=== PATIENT | male | born 1985 | race African-American/Black ===

== ENCOUNTER 2020-10-04 10:01 | Emergency (ER) | payer OTHER ==
[2020-10-04 10:22] VITALS: RESP 18; TEMP 99.5
[2020-10-04] MEDS ORDERED: SODIUM CHLORIDE 0.9% 1,000 ML IV STA (10:26)
[2020-10-04] MEDS ORDERED: ONDANSETRON 4 MG/2 ML VIAL IVP STA (10:34)
--- NOTE | 2020-10-04 10:36 | ED ---
General Adult HPI - General Chief complaint: Alcohol Stated complaint: dehydration Time Seen by Provider: 10/04/20 10:26 Source: patient Mode of arrival: ambulatory Limitations: no limitations - History of Present Illness Initial comments: Dictation was produced using [employer] dictation software. please excuse any grammatical, word or spelling errors. Chief Complaint: 35-year-old male with chief complaint of alcohol withdrawals History of Present Illness: 35-year-old male with past medical history of alcohol abuse presents with symptoms of alcohol withdrawal. Patient states he has not had any alcohol in approximately 2 days. He drinks anywhere between 48 shots daily. He has been admitted for alcohol withdrawals in the past. He states he's also been admitted to cigarettes for alcohol detoxification. Patient states her last complaints she's been having some vomiting. He does feel slightly feverish. Denies any respiratory symptoms. No cough shortness of breath. Denies any abdominal pain. No diarrhea. The ROS documented in this emergency department record has been reviewed and confirmed by me. Those systems with pertinent positive or negative responses have been documented in the HPI. All other systems are other negative and/or noncontributory. PHYSICAL EXAM: General Impression: Alert and oriented x3, not in acute distress HEENT: Normocephalic atraumatic, extra-ocular movements intact, pupils equal and reactive to light bilaterally, mucous membranes moist. Cardiovascular: Heart regular rate and rhythm Chest: Able to complete full sentences, no retractions, no tachypnea Abdomen: abdomen soft, non-tender, non-distended, no organomegaly Musculoskeletal: Pulses present and equal in all extremities, no peripheral edema Motor: no focal deficits noted Neurological: CN II-XII grossly intact, no focal motor or sensory deficits noted Skin: Intact with no visualized rashes Psych: Normal affect and mood ED course: 35-year-old male with chief complaint of possible alcohol withdrawal symptoms. Vital signs show low-grade temperature 99.5, rest of vital signs within acceptable limits. Laboratory evaluation obtained. CBC, metabolic panel is unremarkable. Serum alcohol is negative. Patient reevaluated at bedside at 12:10 PM with stable medical condition. Is not showing any signs of severe withdrawals. Patient states he has intention of going to check into a alcoholic detox rehab facility within the next couple days. Patient is agreeable with discharge. He is given prescription for Librium. Told that if his symptoms started worse that he should return to the emergency department or seek immediate medical attention. Patient is agreeable to plan. - Related Data Home Medications Medication Instructions Recorded Confirmed hydrOXYzine pamoate [Vistaril] 50 mg PO TID PRN 10/04/20 10/04/20 Previous Rx's Medication Instructions Recorded chlordiazePOXIDE HCl [Librium] 25 mg PO TID 3 Days #15 capsule 10/04/20 Allergies Allergy/AdvReac Type Severity Reaction Status Date / Time No Known Allergies Allergy Verified 10/04/20 11:04 Review of Systems ROS Statement: Those systems with pertinent positive or pertinent negative responses have been documented in the HPI. ROS Other: All systems not noted in ROS Statement are negative. Past Medical History Additional Past Medical History / Comment(s): alcoholism History of Any Multi-Drug Resistant Organisms: None Reported Past Surgical History: No Surgical Hx Reported Past Psychological History: No Psychological Hx Reported Smoking Status: Never smoker Past Alcohol Use History: Abuse, Daily Past Drug Use History: Marijuana General Exam Limitations: no limitations Course Vital Signs 10/04/20 10:17 Temperature 99.5 F Pulse Rate 88 Respiratory 18 Rate Blood Pressure 142/103 O2 Sat by Pulse 99 Oximetry Medical Decision Making - Lab Data Result diagrams: 10/04/20 10:38 10/04/20 10:38 Lab Results 10/04/20 10/04/20 Range/Units 10:38 10:38 WBC 4.1 (3.8-10.6) k/uL RBC 4.54 (4.30-5.90) m/uL Hgb 13.6 (13.0-17.5) gm/dL Hct 41.3 (39.0-53.0) % MCV 90.9 (80.0-100.0) fL MCH 30.0 (25.0-35.0) pg MCHC 33.0 (31.0-37.0) g/dL RDW 14.0 (11.5-15.5) % Plt Count 335 (150-450) k/uL MPV 7.4 Neutrophils % (Manual) 56 % Lymphocytes % (Manual) 31 % Monocytes % (Manual) 10 % Eosinophils % (Manual) 3 % Neutrophils # (Manual) 2.30 (1.3-7.7) k/uL Lymphocytes # (Manual) 1.27 (1.0-4.8) k/uL Monocytes # (Manual) 0.41 (0-1.0) k/uL Eosinophils # (Manual) 0.12 (0-0.7) k/uL Nucleated RBCs 0 (0-0) /100 WBC Manual Slide Review Performed RBC Morphology Normal Sodium 137 (137-145) mmol/L Potassium 3.4 L (3.5-5.1) mmol/L Chloride 94 L (98-107) mmol/L Carbon Dioxide 28 (22-30) mmol/L Anion Gap 15 mmol/L BUN 19 (9-20) mg/dL Creatinine 0.88 (0.66-1.25) mg/dL Est GFR (CKD-EPI)AfAm >90 (>60 ml/min/1.73 sqM) Est GFR (CKD-EPI)NonAf >90 (>60 ml/min/1.73 sqM) Glucose 79 (74-99) mg/dL Calcium 9.5 (8.4-10.2) mg/dL Magnesium 1.7 (1.6-2.3) mg/dL Total Bilirubin 0.6 (0.2-1.3) mg/dL AST 55 (17-59) U/L ALT 48 (4-49) U/L Alkaline Phosphatase 84 (38-126) U/L Total Protein 7.6 (6.3-8.2) g/dL Albumin 4.7 (3.5-5.0) g/dL Serum Alcohol <10 mg/dL Disposition Clinical Impression: Alcohol withdrawal Disposition: HOME SELF-CARE Condition: Fair Instructions (If sedation given, give patient instructions): Alcohol Withdrawal (ED) Prescriptions: chlordiazePOXIDE HCl [Librium] 25 mg PO TID 3 Days #15 capsule Is patient prescribed a controlled substance at d/c from ED?: Yes If prescribed controlled substance>3 days was MAPS reviewed?: Prescribed <3 Days Referrals: None,Stated [Primary Care Provider] - 1-2 days
[2020-10-04 11:18] LABS: HCT 41.3 % (39.0-53.0); HGB 13.6 gm/dL (13.0-17.5); MCV 90.9 fL (80.0-100.0); Mean Platelet Volume 7.4; Platelet Count 335 k/uL (150-450); RBC 4.54 m/uL (4.30-5.90); WBC 4.1 k/uL (3.8-10.6)
[2020-10-04 11:41] LABS: ALT 48 U/L (4-49); AST 55 U/L (17-59); African American GFR (CKD) >90 (>60 ml/min/1.73 sqM); Albumin 4.7 g/dL (3.5-5.0); Alcohol <10 mg/dL; Alkaline Phosphatase 84 U/L (38-126); Anion Gap 15 mmol/L; Blood Urea Nitrogen 19 mg/dL (9-20); Calcium 9.5 mg/dL (8.4-10.2); Carbon Dioxide 28 mmol/L (22-30); Chloride 94 mmol/L (98-107); Glucose 79 mg/dL (74-99); Magnesium 1.7 mg/dL (1.6-2.3); Non-African American GFR(CKD) >90 (>60 ml/min/1.73 sqM); Potassium 3.4 mmol/L (3.5-5.1); Sodium 137 mmol/L (137-145); Total Bilirubin 0.6 mg/dL (0.2-1.3); Total Protein 7.6 g/dL (6.3-8.2)
[2020-10-04 12:00] LABS: Eosinophils # (M) 0.12 k/uL (0-0.7); Lymphocytes # (M) 1.27 k/uL (1.0-4.8); Monocytes # (M) 0.41 k/uL (0-1.0); Neutrophils % (M) 56 %; Nucleated Red Blood Cells 0 /100 WBC (0-0); Total Cells Counted 100
[2020-10-04 12:27] VITALS: BP 123/82; PULSE 77
== END 2020-10-04 12:31 | disposition home or self-care (01) ==
LOC: EC 10:01
DX: F10.239 Alcohol dependence with withdrawal, unspecified (principal)
CPT/HCPCS: 36415; 80053; 83735; 85025; 99283; 96374; 96361; G0480; J2405; 80320; 83690